=== PATIENT | male | born 1955 | race African-American/Black ===

== ENCOUNTER 2016-04-15 17:32 | Emergency (ER) | payer BC ==
[2016-04-15 17:43] VITALS: BMI 23.3
[2016-04-15] MEDS ORDERED: ACETAMINOPHEN 1000 MG/100 ML VIAL (NON FORMULARY) IVPB ONE (18:46)
[2016-04-15] MEDS ORDERED: SODIUM CHLORIDE 1,000 ML IV STA (18:46)
--- NOTE | 2016-04-15 18:46 | PDOC ---
History of Present Illness - General History Source: Patient Exam Limitations: No Limitations - History of Present Illness Initial Comments: 04/15/16 18:47 The patient is a 60 year old male, with a significant past medical history of diabetes, HTN, and multiple myeloma, who presents to the emergency department with cough, congestion, chills, lightheadedness and AMS. The patients states last night when the patient got home he had the chills and was congested. She notes today his symptoms persisted and he was feeling weak along with being somnolent. denies any [id number] medication. denies getting his flu shot this season. Allergies: NKDA Social History: Nonsmoker. <Zan Arroyo - Last Filed: 04/15/16 18:56> <Anai Comer - Last Filed: 04/15/16 18:57> <Rere Pérez - Last Filed: 04/16/16 04:03> - General Chief Complaint: Altered Mental Status Stated Complaint: LIGHTHEADED/DISORIENTED/COUGH Time Seen by Provider: 04/15/16 18:39 Past History <Zan Arroyo - Last Filed: 04/15/16 18:56> - Past Medical History Cancer: (MULTIPLE MYELOMA) Diabetes: Yes HTN: Yes - Surgical History Neurologic Surgery: Yes (BRAIN) - Psycho/Social/Smoking Cessation Hx Anxiety: No Suicidal Ideation: No Smoking History: Never smoked Hx Alcohol Use: Yes (SOCIAL) Drug/Substance Use Hx: No Substance Use Type: None <Anai Comer - Last Filed: 04/15/16 18:57> <Rere Pérze - Last Filed: 04/16/16 04:03> - Past Medical History Allergies/Adverse Reactions: Allergies Allergy/AdvReac Type Severity Reaction Status Date / Time No Known Allergies Allergy Verified 04/15/16 17:43 Home Medications: Ambulatory Orders Amlodipine Besylate [Norvasc -] 5 mg PO DAILY 04/15/16 Lenalidomide [Revlimid] 25 mg PO DAILY 04/15/16 Metformin HCl [Glucophage -] 500 mg PO DAILY 04/15/16 Rivaroxaban [Xarelto -] 0 mg PO DAILY 04/15/16 Simvastatin [Zocor] 10 mg PO HS 04/15/16 Valacyclovir HCl [Valtrex -] 0 mg PO ASDIR 04/15/16 Review of Systems - Review of Systems Able to Perform ROS?: Yes Comments:: 04/15/16 18:48 GENERAL/CONSTITUTIONAL: Yes chills and weakness. No fever. HEAD, EYES, EARS, NOSE AND THROAT: No change in vision. No ear pain or discharge. No sore throat. CARDIOVASCULAR: No chest pain or shortness of breath. RESPIRATORY: Yes cough No wheezing, or hemoptysis. GASTROINTESTINAL: No nausea, vomiting, diarrhea or constipation. GENITOURINARY: No dysuria, frequency, or change in urination. MUSCULOSKELETAL: No joint or muscle swelling or pain. No neck or back pain. SKIN: No rash NEUROLOGIC: Yes AMS and lightheadedness. No headache, vertigo, loss of consciousness, or change in strength/sensation. ENDOCRINE: No increased thirst. No abnormal weight change. HEMATOLOGIC/LYMPHATIC: No anemia, easy bleeding, or history of blood clots. ALLERGIC/IMMUNOLOGIC: No hives or skin allergy. <Zan Arroyo - Last Filed: 04/15/16 18:56> *Physical Exam - Vital Signs Last Vital Signs Temp Pulse Resp BP Pulse Ox 99.8 F H 75 20 139/58 96 04/15/16 17:39 04/15/16 17:39 04/15/16 17:39 04/15/16 17:39 04/15/16 17:39 - Physical Exam Comments: 04/15/16 18:48 GENERAL: Awake, alert, and fully oriented. Appears ill but is non-toxic. HEAD: No signs of trauma EYES: PERRLA, EOMI, sclera anicteric, conjunctiva clear ENT: Auricles normal inspection, hearing grossly normal, nares patent, oropharynx clear without exudates. Dry mucosa NECK: Normal ROM, supple, no lymphadenopathy, JVD, or masses LUNGS: Breath sounds equal, clear to auscultation bilaterally. No wheezes, and no crackles HEART: Regular rate and rhythm, normal S1 and S2, no murmurs, rubs or gallops ABDOMEN: Soft, nontender, normoactive bowel sounds. No guarding, no rebound. No masses EXTREMITIES: Normal range of motion, no edema. No clubbing or cyanosis. No cords, erythema, or tenderness NEUROLOGICAL: Cranial nerves II through XII grossly intact. Normal speech. SKIN: Warm, Dry, normal turgor, no rashes or lesions noted. <Zan Arroyo - Last Filed: 04/15/16 18:56> - Vital Signs Last Vital Signs Temp Pulse Resp BP Pulse Ox 99.8 F H 75 20 139/58 96 04/15/16 17:39 04/15/16 17:39 04/15/16 17:39 04/15/16 17:39 04/15/16 17:39 <Anai Comer - Last Filed: 04/15/16 18:57> - Vital Signs Last Vital Signs Temp Pulse Resp BP Pulse Ox 101.2 F H 89 21 142/86 97 04/15/16 20:06 04/15/16 20:06 04/15/16 20:06 04/15/16 20:06 04/15/16 20:06 <Rere Pérez - Last Filed: 04/16/16 04:03> Heart Score/ECG Review - ECG Impressions Comment:: EKG read 18:50- NSR 93 bpm, no acute ST/T changes <Anai Comer - Last Filed: 04/15/16 18:57> ED Treatment Course - LABORATORY CBC & Chemistry Diagram: 04/15/16 18:50 04/15/16 18:50 - ADDITIONAL ORDERS Additional order review: Laboratory Results 04/15/16 04/15/16 04/15/16 19:50 18:50 18:50 Sodium 137 Potassium 4.0 Chloride 97 L Carbon Dioxide 29 Anion Gap 11 BUN 10 Creatinine 1.3 Creat Clearance w eGFR 55.94 Random Glucose 154 H Lactic Acid 1.906 Calcium 9.0 Total Bilirubin 0.5 AST 18 ALT 25 Alkaline Phosphatase 123 H Total Protein 6.4 Albumin 4.0 Urine Color Straw Urine Appearance Clear Urine pH 5.0 Ur Specific [place] 1.004 Urine Protein Negative Urine Glucose (UA) Negative Urine Ketones Negative Urine Blood 2+ H Urine Nitrite Negative Urine Bilirubin Negative Urine Urobilinogen Negative Ur Leukocyte Esterase Negative Urine RBC 1 Urine WBC <1 Ur Epithelial Cells Rare Hyaline Casts 1 Urine Mucus Rare 04/15/16 18:50 Influenza Types A,B Antigen (IDA) - Final Nasopharyngeal Swab - Final 04/15/16 18:50 RBC 5.09 MCV 84.7 MCHC 32.3 RDW 15.0 MPV 8.0 Neutrophils % 70.8 Lymphocytes % 12.6 Monocytes % 15.2 H Eosinophils % 0.7 Basophils % 0.7 - Medications Given in the ED: ED Medications Discontinued Medications Generic Name Dose Route Start Last Admin Trade Name Destiny PRN Reason Stop Dose Admin Acetaminophen 1,000 mg 04/15/16 18:46 04/15/16 19:19 Ofirmev Injection - IVPB 04/15/16 18:47 1,000 mg ONCE ONE Administration Sodium Chloride 1,000 mls @ 1,000 mls/hr 04/15/16 18:46 04/15/16 19:19 Normal Saline - IV 04/15/16 19:45 1,000 mls/hr ASDIR STA Administration Oseltamivir Phosphate 75 mg 04/15/16 19:37 04/15/16 19:46 Tamiflu - PO 04/15/16 19:38 75 mg ONCE ONE Administration <Rere Pérez - Last Filed: 04/16/16 04:03> Medical Decision Making - Medical Decision Making 04/16/16 04:02 Pt has influenza. He is feeling better after hydration. He is alert and wants to go home with his sig other. He states that he has 2 sons at home that he has to get to school tomorrow. Pt will be discharged home with tamiflu. <Rere Pérez - Last Filed: 04/16/16 04:03> *DC/Admit/Observation/Transfer - Attestations Scribe Attestion: 04/15/16 18:48 Documentation prepared by Zan Arroyo, acting as medical care administrator for Anai Comer MD. <Zan Arroyo - Last Filed: 04/15/16 18:56> <Anai Comer - Last Filed: 04/15/16 18:57> - Discharge Dispostion Admit: No <Rere Pérez - Last Filed: 04/16/16 04:03> Diagnosis at time of Disposition: Influenza - Discharge Dispostion Disposition: HOME Condition at time of disposition: Stable - Referrals Referrals: STAFF,NOT ON [Primary Care Provider] - - Patient Instructions Printed Discharge Instructions: Influenza - Post Discharge Activity Work/School Note: Back to Work
[2016-04-15] MEDS ORDERED: ACETAMINOPHEN INJECTION 100 ML IVPB ONE (19:10)
[2016-04-15 19:11] LABS: BASOPHIL 0.7 % (0-2.0); EOSINOPHIL 0.7 % (0-4.5); MCH 27.3 pg (25.7-33.7); MCHC 32.3 g/dl (32.0-35.9); MEAN CELL VOLUME 84.7 fl (80-96); NEUTROPHILS 70.8 % (42.8-82.8); PLATELET COUNT 197 K/MM3 (134-434); WHITE BLOOD COUNT 3.6 K/mm3 (4.0-10.0)
[2016-04-15] MEDS ORDERED: OSELTAMIVIR PHOSPHATE 75 MG CAPSULE PO ONE (19:37)
[2016-04-15] MEDS ORDERED: OSELTAMIVIR PHOSPHATE 75 MG CAPSULE ONE (19:42)
[2016-04-15 19:55] LABS: URINE APPEARANCE CLEAR; URINE BILIRUBIN NEGATIVE (NEGATIVE); URINE COLOR STRAW; URINE GLUCOSE (UA) NEGATIVE (NEGATIVE); URINE KETONE NEGATIVE (NEGATIVE); URINE LEUK ESTERASE NEGATIVE (NEGATIVE); URINE NITRITE NEGATIVE (NEGATIVE); URINE PROTEIN NEGATIVE (NEGATIVE); URINE UROBILINOGEN NEGATIVE E.U./dl (0.2-1.0)
[2016-04-15 19:57] LABS: URINE BLOOD 2+ (NEGATIVE)
[2016-04-15 19:58] LABS: URINE HYALINE CAST 1 /lpf; URINE MUCUS RARE; URINE RBC 1 /hpf (0-3); URINE WBC <1 /hpf (3-5)
[2016-04-15 20:05] LABS: BILIRUBIN,TOTAL 0.5 mg/dL (0.2-1.0); CREATININE 1.3 mg/dL (0.7-1.3); TOT PROT 6.4 g/dl (6.4-8.2)
[2016-04-15 20:07] VITALS: BP 142/86; PULSE 89; TEMP 101.2
[2016-04-15] MEDS ORDERED: ACETAMINOPHEN 325 MG TABLET (FP) PO ONE (20:51)
[2016-04-15] MEDS ORDERED: ACETAMINOPHEN 325 MG TABLET (FP) ONE (20:59)
--- NOTE | 2016-04-16 10:26 | EKG ---
Test Reason : Blood Pressure : / mmHG Vent. Rate : 093 BPM Atrial Rate : 093 BPM P-R Int : 156 ms QRS Dur : 094 ms QT Int : 340 ms P-R-T Axes : 064 008 040 degrees QTc Int : 422 ms NORMAL SINUS RHYTHM WITH SINUS ARRHYTHMIA NORMAL ECG NO PREVIOUS ECGS AVAILABLE Confirmed by ANNEL JIMENEZ MD ([id number]) on 04/16/2016 10:26:03 AM Referred By: Confirmed By:ANNEL JIMENEZ MD
== END 2016-04-15 21:08 | disposition home or self-care (01) ==
LOC: JER 17:32
PROC: 3E033NZ Introduction of Analgesics, Hypnotics, Sedatives into Peripheral Vein, Percutaneous Approach (ICD-10-PCS; principal; 2016-04-15)
DX: J09.X2 Influenza due to identified novel influenza A virus with other respiratory manifestations (principal); I10 Essential (primary) hypertension; E11.9 Type 2 diabetes mellitus without complications; Z79.84 Long term (current) use of oral hypoglycemic drugs; Z85.79 Personal history of other malignant neoplasms of lymphoid, hematopoietic and related tissues
CPT/HCPCS: 36415; 71010-TC; 80053; 81003; 81015; 83605; 85025; 87040; 87086; 87804; 93005; 93010; 99283-25

== ENCOUNTER 2016-06-12 12:48 | Emergency (ER) | payer OTHER, BC ==
[2016-06-12 12:58] VITALS: TEMP 98.1; BMI 21.1
--- NOTE | 2016-06-12 13:54 | PDOC ---
History of Present Illness <Jose G Herzog - Last Filed: 06/12/16 16:32> - General History Source: Patient, Old Records Exam Limitations: No Limitations - History of Present Illness Initial Comments: 06/12/16 19:03 The patient is a 60 year old male, with a significant past medical history of HTN, diabetes, DVT (on eliquis) and multiple lyomoma (had radiation therapy and currentl on chemotherapy), who presents to the emergency department with generalized weakness and left sided headache. He also notes that he has neck pain and mild blurry vision associated with his chief complaint. He states that he took Oxycodene this morning, with minimal relief of his symptoms. He reports that he had a similar pain on the right side on 07/2015, that was more severe that his current pain. He also reports that he noticed that this pain has been brought on due to standing for long periods of time. His PMD gave him a muscle relaxer, which relieved the pain. 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 He is set to follow up with his opthamologist. Pt describes his blurry vision as when he first looks at something, most of it is clear except for the periphery, but when he looks carefully, it is clear. no associated double vision. The patient denies chest pain, shortness of breath,and dizziness. Denies fever, chills, nausea, vomit, diarrhea and constipation. Allergies: None Past surgical history: Brain surgery Social history: No alcohol, tobacco or drug use reported <Silvano Ventura - Last Filed: 06/12/16 19:04> - General Chief Complaint: Weakness Stated Complaint: FATIGUE, LETHARGIC, EYE PAIN Time Seen by Provider: 06/12/16 13:54 Past History - Past Medical History Cancer: Yes (MULTIPLE MYELOMA) Diabetes: Yes HTN: Yes - Surgical History Neurologic Surgery: Yes (BRAIN) - Psycho/Social/Smoking Cessation Hx Anxiety: No Suicidal Ideation: No Smoking History: Never smoked Have you smoked in the past 12 months: No Information on smoking cessation initiated: No Hx Alcohol Use: No Drug/Substance Use Hx: No Substance Use Type: None <Jose G Herzog - Last Filed: 06/12/16 16:32> <Silvano Ventura - Last Filed: 06/12/16 19:04> - Past Medical History Allergies/Adverse Reactions: Allergies Allergy/AdvReac Type Severity Reaction Status Date / Time No Known Allergies Allergy Verified 06/12/16 12:53 Home Medications: Ambulatory Orders Amlodipine Besylate [Norvasc -] 5 mg PO DAILY 04/15/16 Lenalidomide [Revlimid] 25 mg PO DAILY 04/15/16 Metformin HCl [Glucophage -] 500 mg PO DAILY 04/15/16 Rivaroxaban [Xarelto -] 0 mg PO DAILY 04/15/16 Simvastatin [Zocor] 10 mg PO HS 04/15/16 Valacyclovir HCl [Valtrex -] 0 mg PO ASDIR 04/15/16 Review of Systems - Review of Systems Able to Perform ROS?: Yes Comments:: 06/12/16 19:04 CONSTITUTIONAL: Reported: Generalized weakness. No reported: Fever, Chills, Diaphoresis, Malaise, Loss of Appetite HEENT: Reported: Blurry vision, left eye pain No reported: Rhinorrhea, Nasal Congestion, Throat Pain, Throat Swelling, Difficulty Swallowing, Mouth Swelling, Ear Pain CARDIOVASCULAR: No reported: Chest Pain, Syncope, Palpitations, Irregular Heart Rate, Lightheadedness, Peripheral Edema RESPIRATORY: No reported: Cough, Shortness of Breath, SOB with Exertion, Orthopnea, Wheezing , Stridor, Hemoptysis GASTROINTESTINAL: No reported: Abdominal pain, Abdominal Distension, Nausea, Vomiting, Diarrhea, Constipation, Melena, Hematochezia GENITOURINARY: No reported: Dysuria, Frequency, Urgency, Hesitancy, Flank Pain, Genital Pain MUSCULOSKELETAL: Reported: Neck pain. No reported: Myalgia, Arthralgia, Joint Swelling, Back pain. SKIN: No reported: Rash, Itching, Pallor HEMEATOLOGIC/IMMUNOLOGIC: No reported: Easy Bleeding, Easy Bruising, Lymphadenopathy, Frequent infections ENDOCRINE: No reported: Unexplained Weight Gain, Unexplained Weight Loss, Heat Intolerance , Cold Intolerance NEUROLOGIC: Reported: Headache No reported: Focal Weakness, Paresthesias, Vertigo, Lightheadedness, Unsteady Gait, Seizure, Mental Status Changes, Incontinence PSYCHIATRIC: No reported: Anxiety, Depression <Silvano Ventura - Last Filed: 06/12/16 19:04> *Physical Exam - Vital Signs Last Vital Signs Temp Pulse Resp BP Pulse Ox 98.1 F 71 18 130/86 100 06/12/16 12:55 06/12/16 12:55 06/12/16 12:55 06/12/16 12:55 06/12/16 12:55 <Jose G Herzog - Last Filed: 06/12/16 16:32> - Vital Signs Last Vital Signs Temp Pulse Resp BP Pulse Ox 98.1 F 71 18 130/86 100 06/12/16 12:55 06/12/16 12:55 06/12/16 12:55 06/12/16 12:55 06/12/16 12:55 - Physical Exam Comments: 06/12/16 19:04 GENERAL: The patient is awake, alert, and fully oriented, Nontoxic - in no acute distress. HEAD: Normocephalic, atraumatic. No palpable tenderness or mass in the temples. EYES: extraocular movements intact, sclera anicteric, conjunctiva clear. visual gaspar intact, pupils 3mm and symmetrically reactive ENT: Normal voice, Moist mucous membranes. NECK: Normal range of motion, supple LUNGS: Breath sounds equal, clear to auscultation bilaterally. No wheezes, no rhonchi, no rales. HEART: Regular rate and rhythm, without murmur, rub or gallop. ABDOMEN: Soft, nontender, normoactive bowel sounds. No guarding, no rebound.No CVA tenderness EXTREMITIES: Normal range of motion, no edema. No clubbing or cyanosis. No cords, erythema, or tenderness. NEUROLOGICAL: No facial assymetry, Normal speech, PSYCH: Normal mood, normal affect. SKIN: Warm, Dry, normal turgor <Silvano Ventura - Last Filed: 06/12/16 19:04> Heart Score/ECG Review - ECG Impressions Comment:: 06/12/16 14:47 Twelve-lead EKG was performed and reviewed by me. There is normal sinus rhythm with a normal rate. Rate of 71 The axis is normal. The intervals are normal. There is normal R wave progression There are no ST or T wave abnormalities. Impression: Normal twelve-lead EKG <Jose G Herzog - Last Filed: 06/12/16 16:32> ED Treatment Course - LABORATORY CBC & Chemistry Diagram: 06/12/16 14:00 06/12/16 14:00 <Jose G Herzog - Last Filed: 06/12/16 16:32> - LABORATORY CBC & Chemistry Diagram: 06/12/16 14:00 06/12/16 14:00 - ADDITIONAL ORDERS Additional order review: Laboratory Results 06/12/16 06/12/16 14:00 14:00 Sodium 141 Potassium 3.8 Chloride 103 Carbon Dioxide 27 Anion Gap 11 BUN 12 Creatinine 1.0 D Creat Clearance w eGFR > 60 Random Glucose 134 H Calcium 9.1 Magnesium 2.0 Total Bilirubin 0.5 AST 15 ALT 19 D Alkaline Phosphatase 120 H Creatine Kinase 151 CK-MB (CK-2) Rel Index Cancelled Troponin I < 0.02 C-Reactive Protein < 0.3 Total Protein 6.4 Albumin 3.9 06/12/16 14:00 RBC 4.69 MCV 84.3 MCHC 31.7 L RDW 15.8 MPV 7.5 Neutrophils % 53.2 D Lymphocytes % 22.2 D Monocytes % 18.9 H Eosinophils % 3.6 D Basophils % 2.1 H - RADIOLOGY Radiograph Interpretation: 06/12/16 15:[address] Reviewed by: Dr. Glenroy Puente Impression: No evidence of acute intracranial hemorrhage, edema, midline shift, mass effect. Supratentorial decreased attenuation of the white matter which may be attributed to the chronic microangiopathic ischemic changes, gliosis, demylimation, postradiation changes. Postop changes involving the occipital calvarium. Chest X-Ray Reviewed by: Dr. Glenroy Puente Impression: No evidence of active pulmonary disease. No evidence of pneumothorax. - Medications Given in the ED: ED Medications Discontinued Medications Generic Name Dose Route Start Last Admin Trade Name Freq PRN Reason Stop Dose Admin Metoclopramide HCl 10 mg 06/12/16 13:57 06/12/16 14:30 Reglan Injection - IVPUSH 06/12/16 13:58 10 mg ONCE ONE Administration <Silvano Ventura - Last Filed: 06/12/16 19:04> Medical Decision Making - Medical Decision Making 06/12/16 14:17 60y F hx of multiple myeloma, dvt on eliquis, dm, htn, presents with headache - pt endorses intermittent headaches for the past few weeks, that seems to worsen when he is standing, it was worse than usual today so he came to [facility] for evaluation. On exam the patient has unremarkale exam. ?tension headache? consider possible tempora arteritis will obtain blood work ct head will give reglan will reassess A portion of this note was documented by scribe services under my direction. I have reviewed the details of the note, within reason, and agree with the documentation with the following case summary and management plan written by me 06/12/16 15:46 06/12/16 15:46 pts albs reviewed unremarkable crp negative pts ct head noted for chonic, post op changes suspect pts symptoms secondary to tension headache, possibly sleep related as pt states he has not been sleeping enough recently and notes in the past the headache is improved with sleep. pt currently feels improved with complete resolution of the headache, h is sitting comfortably in the stretcher eating a pastrami wrap will d/c the pt to fu with her pmd return precautions were discussed I discussed the physical exam findings, ancillary test results and final diagnoses with the patient. I answered all of the patient's questions. The patient was satisfied with the care received and felt comfortable with the discharge plan and treatment plan. The patient will call their primary care physician within 24 hours to arrange follow-up and will return to the Emergency Department with any new, persistent or worsening symptoms. <Jose G Herzog - Last Filed: 06/12/16 16:32> *DC/Admit/Observation/Transfer - Discharge Dispostion Admit: No <Jose G Herzog - Last Filed: 06/12/16 16:32> - Attestations Scribe Attestion: 06/12/16 19:04 Documentation prepared by Silvano Ventura, acting as back office medical assistant for Jose G Herzog MD <Silvano Ventura - Last Filed: 06/12/16 19:04> Diagnosis at time of Disposition: Headache Qualifiers: Headache type: tension-type Headache chronicity pattern: acute headache Intractability: not intractable Qualified Code(s): G44.209 - Tension-type headache, unspecified, not intractable - Discharge Dispostion Disposition: HOME Condition at time of disposition: Improved - Referrals Referrals: [facility] [Provider Group] - Patient Instructions Printed Discharge Instructions: DI for Headache Additional Instructions: Return to the emergency department immediately with ANY new, persistent or worsening symptoms including worsening headache, vision changes, vomiting, or any other concerns. You MUST call and follow up with your doctor tomorrow for further evaluation of your symptoms. Results were discussed with you. Please make sure your doctor reviews the results of your emergency evaluation. Print Language: FAROESE
[2016-06-12] MEDS ORDERED: METOCLOPRAMIDE HCL INJECTION 10 MG/2 ML VIAL IVPUSH ONE (13:57)
[2016-06-12] MEDS ORDERED: METOCLOPRAMIDE HCL INJECTION 10 MG/2 ML VIAL ONE (14:16)
[2016-06-12 14:33] LABS: BASOPHIL 2.1 % (0-2.0); EOSINOPHIL 3.6 % (0-4.5); MCH 26.8 pg (25.7-33.7); MCHC 31.7 g/dl (32.0-35.9); MEAN CELL VOLUME 84.3 fl (80-96); MEAN PLT VOLUME 7.5 fl (7.5-11.1); NEUTROPHILS 53.2 % (42.8-82.8); PLATELET COUNT 239 K/MM3 (134-434); RDW 15.8 % (11.9-15.9); WHITE BLOOD COUNT 3.3 K/mm3 (4.0-10.0)
[2016-06-12 14:58] LABS: ALBUMIN 3.9 g/dl (3.4-5.0); ANION GAP 11 (8-16); BILIRUBIN,TOTAL 0.5 mg/dL (0.2-1.0); C-REACTIVE PROTEIN < 0.3 MG/DL (0.00-0.3); CALCIUM 9.1 mg/dL (8.5-10.1); CO2 27 mmol/L (21-32); GLUCOSE,RANDOM 134 mg/dL (74-106); SGOT/AST 15 U/L (15-37); SGPT/ALT 19 U/L (12-78); TOT PROT 6.4 g/dl (6.4-8.2)
[2016-06-12 14:59] LABS: ALK PHOS 120 U/L (45-117); TROPONIN I < 0.02 ng/ml (0.00-0.05)
[2016-06-12 15:18] LABS: URINE APPEARANCE CLEAR; URINE BILIRUBIN NEGATIVE (NEGATIVE); URINE BLOOD NEGATIVE (NEGATIVE); URINE COLOR COLORLESS; URINE GLUCOSE (UA) NEGATIVE (NEGATIVE); URINE KETONE NEGATIVE (NEGATIVE); URINE LEUK ESTERASE NEGATIVE (NEGATIVE); URINE NITRITE NEGATIVE (NEGATIVE); URINE PROTEIN NEGATIVE (NEGATIVE); URINE UROBILINOGEN NEGATIVE E.U./dl (0.2-1.0)
--- NOTE | 2016-06-12 15:55 | EKG ---
Test Reason : Blood Pressure : / mmHG Vent. Rate : 071 BPM Atrial Rate : 071 BPM P-R Int : 164 ms QRS Dur : 104 ms QT Int : 406 ms P-R-T Axes : 051 -06 024 degrees QTc Int : 441 ms NORMAL SINUS RHYTHM NORMAL ECG WHEN COMPARED WITH ECG OF 15-APR-2016 18:46, NO SIGNIFICANT CHANGE WAS FOUND Confirmed by JOSEPH MESSER MD ([id number]) on 06/12/2016 3:55:22 PM Referred By: Confirmed By:JOSEPH MESSER MD
[2016-06-12 16:16] LABS: ERYTHROCYTE SEDIMENTATION RATE 3 mm/hr (0-20)
[2016-06-12 16:40] VITALS: BP 127/83; PULSE 78
== END 2016-06-12 16:40 | disposition home or self-care (01) ==
LOC: JER 12:48
PROC: 3E033GC Introduction of Other Therapeutic Substance into Peripheral Vein, Percutaneous Approach (ICD-10-PCS; principal; 2016-06-12)
DX: G44.209 Tension-type headache, unspecified, not intractable (principal); C90.00 Multiple myeloma not having achieved remission; Z86.718 Personal history of other venous thrombosis and embolism; Z79.01 Long term (current) use of anticoagulants; I10 Essential (primary) hypertension; E11.9 Type 2 diabetes mellitus without complications; Z79.84 Long term (current) use of oral hypoglycemic drugs
CPT/HCPCS: 36415; 70450-TC; 71010-TC; 80053; 81003; 82550; 82553; 83735; 84484; 85025; 85651; 86140; 93005; 93010; 96374; 99284-25

== ENCOUNTER 2020-09-28 17:58 | Observation (INO) | payer OTHER, BC ==
[2020-09-28] MEDS ORDERED: ACETAMINOPHEN 325 MG TABLET (FP) PO ONE (19:45)
[2020-09-28] MEDS ORDERED: ASPIRIN 81 MG CHEWABLE TABLETS PO ONE (20:02)
[2020-09-28] MEDS ORDERED: ACETAMINOPHEN 325 MG TABLET (FP) ONE (20:34)
[2020-09-28] MEDS ORDERED: ASPIRIN 81 MG CHEWABLE TABLETS ONE (20:34)
[2020-09-28] MEDS ORDERED: FAMOTIDINE 20 MG/50 ML IVPB 20 MG/50 ML MG IVPB ONE ×2 (21:03→21:33)
[2020-09-28 21:04] LABS: EOS % 2.4 % (0-4.5); HEMATOCRIT 33.9 % (35.4-49); HEMOGLOBIN 10.8 GM/dL (11.7-16.9); LYMPH % 19.6 % (8-40); MCHC 31.8 g/dl (32.0-35.9); MEAN PLT VOLUME 8.3 fl (7.5-11.1); MONO % 7.3 % (3.8-10.2); NEUT % 69.7 % (42.8-82.8); PLATELET COUNT 223 10^3/uL (134-434); RBC 3.86 M/mm3 (4.00-5.60); RDW 16.3 % (11.9-15.9); WHITE BLOOD COUNT 8.9 K/mm3 (4.0-10.0)
[2020-09-28 21:10] LABS: EPI CELLS 0 /uL (0-25.1); HYALINE CASTS 0 /uL (0-3.1); URINE APPEARANCE CLEAR; URINE BACTERIA 7 /uL (0-1359); URINE BILIRUBIN NEGATIVE (NEGATIVE); URINE COLOR YELLOW; URINE GLUCOSE (UA) NEGATIVE (NEGATIVE); URINE KETONE NEGATIVE (NEGATIVE); URINE LEUK ESTERASE NEGATIVE (NEGATIVE); URINE NITRITE NEGATIVE (NEGATIVE); URINE PROTEIN 1+ (NEGATIVE); URINE RBC 97 /uL (0-23.9); URINE WBC 2 /uL (0-25.8)
[2020-09-28 21:11] LABS: INR 1.45 (0.83-1.09); PROTHROMBIN TIME (PATIENT) 17.4 SEC (9.7-13.0)
[2020-09-28 21:14] LABS: ACTIVATED PTT 32.2 SECONDS (25.2-36.5)
[2020-09-28 21:24] LABS: CHLORIDE 104 mmol/L (98-107); SODIUM 140 mmol/L (136-145)
[2020-09-28 21:27] LABS: CALCIUM 8.7 mg/dL (8.5-10.1)
[2020-09-28 21:28] LABS: ALBUMIN 3.2 g/dl (3.4-5.0); ANION GAP 8 MMOL/L (8-16); BLOOD UREA NITROGEN 17.7 mg/dL (7-18); CO2 28 mmol/L (21-32); GLUCOSE,RANDOM 131 mg/dL (74-106)
[2020-09-28 21:31] LABS: CREATININE 1.3 mg/dL (0.55-1.3); SGOT/AST 20 U/L (15-37); SGPT/ALT 22 U/L (13-61)
[2020-09-28 21:32] LABS: BILIRUBIN,TOTAL 0.8 mg/dL (0.2-1); TOT PROT 5.5 g/dl (6.4-8.2)
[2020-09-28 21:33] LABS: ALK PHOS 113 U/L (45-117)
[2020-09-29] MEDS ORDERED: ACETAMINOPHEN 325 MG TABLET (FP) PO PRN (02:11)
[2020-09-29 05:44] LABS: BASO % 1.9 % (0-2.0); EOS % 3.2 % (0-4.5); HEMATOCRIT 34.8 % (35.4-49); HEMOGLOBIN 10.9 GM/dL (11.7-16.9); LYMPH % 15.8 % (8-40); MCH 27.8 pg (25.7-33.7); MCHC 31.3 g/dl (32.0-35.9); MEAN CELL VOLUME 88.8 fl (80-96); MEAN PLT VOLUME 8.1 fl (7.5-11.1); MONO % 8.1 % (3.8-10.2); PLATELET COUNT 218 10^3/uL (134-434); RBC 3.92 M/mm3 (4.00-5.60); RDW 16.1 % (11.9-15.9); WHITE BLOOD COUNT 7.8 K/mm3 (4.0-10.0)
[2020-09-29 06:03] LABS: BLOOD UREA NITROGEN 17.6 mg/dL (7-18); CALCIUM 8.5 mg/dL (8.5-10.1); MAGNESIUM 1.6 mg/dL (1.8-2.4)
[2020-09-29 06:07] LABS: CREATININE 1.1 mg/dL (0.55-1.3); PHOSPHOROUS 4.6 mg/dL (2.5-4.9)
[2020-09-29] MEDS ORDERED: SODIUM PHOSPHATE - 15 MM in SODIUM CHLORIDE 250 ML IVPB ONE (06:53)
[2020-09-29] MEDS ORDERED: MAGNESIUM SULF 50% (8.12 MEQ/2 ML-1 GM VIAL) IVPB ONE (06:54)
[2020-09-29] MEDS: INSULIN SLIDING SCALE (NOVOLOG) 1 VIAL SQ SCH ×3 (09:40→17:05)
[2020-09-29] MEDS ORDERED: MAGNESIUM SULF 50% (8.12 MEQ/2 ML-1 GM VIAL) ONE (09:49)
[2020-09-29] MEDS ORDERED: CARVEDILOL 3.125 MG TABLET (FP) ONE (10:22)
[2020-09-29] MEDS: SACUBITRIL/VALSARTAN 24 MG-26 MG TABLET PO SCH ×2 (10:32→22:05)
[2020-09-29] MEDS: CARVEDILOL 6.25 MG TABLET (FP) PO SCH ×2 (10:32→22:05)
[2020-09-29] MEDS: RIVAROXABAN 20 MG TABLET PO SCH ×2 (18:53→22:05)
[2020-09-29] MEDS ORDERED: ATORVASTATIN CA 20 MG TABLET (FP) PO SCH (22:00)
[2020-09-29] MEDS ORDERED: PT OWN MED DRAWER 7, Y5N ONE (22:00)
[2020-09-29] MEDS ORDERED: LATANOPROST 0.005% OPHTH SOLN 2.5ML BOTTLE OU SCH (22:43)
[2020-09-30 00:48] VITALS: BMI 22.1
[2020-09-30] MEDS: INSULIN SLIDING SCALE (NOVOLOG) 1 VIAL SQ SCH ×3 (06:24→18:01)
[2020-09-30] MEDS ORDERED: PT OWN MED DRAWER 7, Y5N ONE ×4 (07:58→16:34)
[2020-09-30] MEDS: TRAMETINIB PO SCH ×2 (08:04→11:53)
[2020-09-30 08:13] LABS: BASO % 0.8 % (0-2.0); EOS % 6.3 % (0-4.5); HEMATOCRIT 36.8 % (35.4-49); HEMOGLOBIN 11.5 GM/dL (11.7-16.9); MCH 27.6 pg (25.7-33.7); MCHC 31.4 g/dl (32.0-35.9); MEAN PLT VOLUME 8.2 fl (7.5-11.1); MONO % 11.1 % (3.8-10.2); NEUT % 58.8 % (42.8-82.8); PLATELET COUNT 257 10^3/uL (134-434); RBC 4.18 M/mm3 (4.00-5.60); RDW 15.9 % (11.9-15.9); WHITE BLOOD COUNT 6.6 K/mm3 (4.0-10.0)
[2020-09-30] MEDS ORDERED: TAMSULOSIN HCL 0.4 MG CAP PO SCH (08:30)
[2020-09-30 08:41] LABS: ALBUMIN 3.1 g/dl (3.4-5.0); BILIRUBIN,TOTAL 0.9 mg/dL (0.2-1); BLOOD UREA NITROGEN 15.5 mg/dL (7-18); CALCIUM 9.2 mg/dL (8.5-10.1); MAGNESIUM 1.8 mg/dL (1.8-2.4); PHOSPHOROUS 3.8 mg/dL (2.5-4.9); TOT PROT 5.7 g/dl (6.4-8.2)
[2020-09-30] MEDS ORDERED: DEXAMETHASONE 4 MG TABLET (FP) PO ONE (10:00)
[2020-09-30] MEDS: POMALIDOMIDE 3 MG PO SCH ×2 (10:00→12:01)
[2020-09-30] MEDS: CARVEDILOL 6.25 MG TABLET (FP) PO SCH (10:06)
[2020-09-30] MEDS: SACUBITRIL/VALSARTAN 24 MG-26 MG TABLET PO SCH (10:07)
[2020-09-30 10:49] VITALS: PULSE 75
[2020-09-30] MEDS ORDERED: POMALIDOMIDE 3 MG PO SCH (11:36)
[2020-09-30] MEDS ORDERED: TRAMETINIB PO SCH (11:37)
[2020-09-30] MEDS ORDERED: INSULIN (NOVOLOG) ASPART 100 UNITS/ML 10ML VIAL ONE (11:55)
[2020-09-30 15:54] VITALS: BP 126/80; TEMP 98.1
== END 2020-09-30 17:49 | disposition home or self-care (01) ==
LOC: JER 17:58 → UNDOADMOB 22:41 → JERBED 22:41 → INTOOBSV 09-29 02:11 → JERBED 09-29 02:11 → OBSVTOIN 09-29 02:11 → J4W 09-29 20:28 → JERBED 09-29 20:28 → J4W 09-29 20:28
PROVIDERS: ADMIT Hospitalist; ATTEND Internal Medicine
PROC: 3E033GC Introduction of Other Therapeutic Substance into Peripheral Vein, Percutaneous Approach (ICD-10-PCS; principal; 2020-09-29)
DX: C90.00 Multiple myeloma not having achieved remission (principal); I11.0 Hypertensive heart disease with heart failure; R10.31 Right lower quadrant pain; E11.9 Type 2 diabetes mellitus without complications; I50.20 Unspecified systolic (congestive) heart failure; D64.9 Anemia, unspecified; R07.9 Chest pain, unspecified; Z79.01 Long term (current) use of anticoagulants; E78.5 Hyperlipidemia, unspecified; Z79.899 Other long term (current) drug therapy; Z86.718 Personal history of other venous thrombosis and embolism
CPT/HCPCS: 36415; 71046-TC-FY; 72125-TC; 73200-TC-RT; 74176-TC; 80048; 80053; 81003; 82550; 82553; 82962; 83735; 84100; 84484; 85025; 85610; 85730; 87086; 93005; 93010; 96365; 96375; 99285-25; C9803; G0378; U0003; U0005

== ENCOUNTER 2020-11-27 20:20 | Inpatient (IN) | payer OTHER, BC ==
[2020-11-27] MEDS ORDERED: ASPIRIN 81 MG CHEWABLE TABLETS PO ONE (21:00)
[2020-11-27] MEDS ORDERED: ASPIRIN 81 MG CHEWABLE TABLETS ONE (21:23)
[2020-11-27 22:27] LABS: HEMATOCRIT 35.9 % (35.4-49); HEMOGLOBIN 11.7 GM/dL (11.7-16.9); MCH 28.2 pg (25.7-33.7); MCHC 32.5 g/dl (32.0-35.9); MEAN CELL VOLUME 86.9 fl (80-96); MEAN PLT VOLUME 7.6 fl (7.5-11.1); PLATELET COUNT 298 10^3/uL (134-434); RBC 4.13 M/mm3 (4.00-5.60); RDW 17.4 % (11.9-15.9); WHITE BLOOD COUNT 5.3 K/mm3 (4.0-10.0)
[2020-11-27 22:29] LABS: INR 1.02 (0.83-1.09); PROTHROMBIN TIME (PATIENT) 12.5 SEC (9.7-13.0)
[2020-11-27 22:32] LABS: ACTIVATED PTT 29.4 SECONDS (25.2-36.5)
[2020-11-27 22:48] LABS: CHLORIDE 108 mmol/L (98-107); SODIUM 143 mmol/L (136-145)
[2020-11-27 22:50] LABS: ALBUMIN 3.5 g/dl (3.4-5.0); ANION GAP 8 MMOL/L (8-16); BLOOD UREA NITROGEN 26.4 mg/dL (7-18); CALCIUM 9.3 mg/dL (8.5-10.1); CO2 27 mmol/L (21-32); GLUCOSE,RANDOM 113 mg/dL (74-106); MAGNESIUM 1.9 mg/dL (1.8-2.4)
[2020-11-27 22:53] LABS: SGPT/ALT 24 U/L (13-61)
[2020-11-27 22:54] LABS: CREATININE 1.1 mg/dL (0.55-1.3); SGOT/AST 27 U/L (15-37)
[2020-11-27 22:55] LABS: BILIRUBIN,TOTAL 0.6 mg/dL (0.2-1); TOT PROT 6.1 g/dl (6.4-8.2)
[2020-11-27 22:56] LABS: ALK PHOS 147 U/L (45-117)
[2020-11-27 23:17] LABS: ANISOCYTOSIS 1+; MACROCYTOSIS 1+; OVALOCYTE 1+; PLATELET ESTIMATE NORMAL
[2020-11-27] MEDS ORDERED: ACETAMINOPHEN 1000 MG/100 ML VIAL (NON FORMULARY) IVPB ONE (23:17)
[2020-11-27] MEDS ORDERED: ACETAMINOPHEN INJECTION 100 ML IVPB ONE (23:25)
[2020-11-27] MEDS ORDERED: SODIUM CHLORIDE 0.9% 500 ML INFUS.BAG IV ONE (23:43)
[2020-11-28 04:57] LABS: PH,URINE 6.5 (5.0-8.0); URINE APPEARANCE Clear; URINE BILIRUBIN Negative (NEGATIVE); URINE COLOR Yellow; URINE GLUCOSE (UA) 3+ (NEGATIVE); URINE KETONE Negative (NEGATIVE); URINE LEUK ESTERASE Negative (NEGATIVE); URINE NITRITE Negative (NEGATIVE); URINE PROTEIN Trace (NEGATIVE); URINE UROBILINOGEN 0.2 mg/dL (0.2-1.0)
[2020-11-28 07:03] LABS: BASO % 1.6 % (0-2.0); EOS % 0.6 % (0-4.5); HEMATOCRIT 35.9 % (35.4-49); HEMOGLOBIN 11.4 GM/dL (11.7-16.9); LYMPH % 25.3 % (8-40); MCH 28.1 pg (25.7-33.7); MCHC 31.8 g/dl (32.0-35.9); MEAN CELL VOLUME 88.4 fl (80-96); MEAN PLT VOLUME 8.2 fl (7.5-11.1); MONO % 23.4 % (3.8-10.2); NEUT % 49.1 % (42.8-82.8); PLATELET COUNT 299 10^3/uL (134-434); RBC 4.06 M/mm3 (4.00-5.60); WHITE BLOOD COUNT 3.9 K/mm3 (4.0-10.0)
[2020-11-28 07:28] LABS: ALBUMIN 3.1 g/dl (3.4-5.0); BLOOD UREA NITROGEN 20.5 mg/dL (7-18); CALCIUM 8.7 mg/dL (8.5-10.1)
[2020-11-28 07:29] LABS: MAGNESIUM 1.7 mg/dL (1.8-2.4)
[2020-11-28 07:32] LABS: CREATININE 0.9 mg/dL (0.55-1.3); PHOSPHOROUS 3.4 mg/dL (2.5-4.9)
[2020-11-28 07:33] LABS: BILIRUBIN,TOTAL 0.6 mg/dL (0.2-1)
[2020-11-28 07:34] LABS: TOT PROT 5.4 g/dl (6.4-8.2)
[2020-11-28] MEDS: INSULIN SLIDING SCALE (NOVOLOG) 1 VIAL SQ SCH ×2 (09:49→22:52)
[2020-11-28] MEDS: TAMSULOSIN HCL 0.4 MG CAP PO SCH (09:49)
[2020-11-28] MEDS: SACUBITRIL/VALSARTAN 24 MG-26 MG TABLET PO SCH ×2 (10:28→22:52)
[2020-11-28] MEDS: CARVEDILOL 6.25 MG TABLET (FP) PO SCH ×2 (10:28→22:52)
[2020-11-28 10:44] LABS: ANISOCYTOSIS 1+; MACROCYTOSIS 0; OVALOCYTE 1+; PLATELET ESTIMATE NORMAL; TARGET CELLS 1+; TEAR DROP CELLS 1+
[2020-11-28] MEDS ORDERED: RIVAROXABAN 20 MG TABLET PO SCH (18:00)
[2020-11-28] MEDS ORDERED: ATORVASTATIN CA 20 MG TABLET (FP) PO SCH (22:00)
[2020-11-29 03:45] VITALS: BMI 19.8
[2020-11-29] MEDS: INSULIN SLIDING SCALE (NOVOLOG) 1 VIAL SQ SCH ×5 (07:54→21:33)
[2020-11-29] MEDS: CARVEDILOL 6.25 MG TABLET (FP) PO SCH ×2 (10:09→21:33)
[2020-11-29] MEDS: SACUBITRIL/VALSARTAN 24 MG-26 MG TABLET PO SCH ×2 (10:09→21:33)
[2020-11-29] MEDS: TAMSULOSIN HCL 0.4 MG CAP PO SCH (10:09)
[2020-11-29] MEDS ORDERED: LIDOCAINE HCL/PF 2% SDV 5ML VIAL ONE (10:37)
[2020-11-29] MEDS ORDERED: PROPOFOL 20 ML ONE (10:37)
[2020-11-29] MEDS ORDERED: MIDAZOLAM HCL 2 MG/2 ML SINGLE DOSE VIAL ONE (10:37)
[2020-11-29] MEDS ORDERED: ROCURONIUM BROMIDE 50 MG/5 ML SYRINGE ONE (10:37)
[2020-11-29] MEDS ORDERED: DEXAMETHASONE SOD PHOSPHATE 4 MG/1 ML VIAL ONE (10:37)
[2020-11-29] MEDS ORDERED: LIDOCAINE HCL 1%, 10 MG/ML (20ML VIAL) ONE (10:46)
[2020-11-29] MEDS ORDERED: BUPIVACAINE HCL/PF 0.5% (5MG/ML) 10 ML VIAL ONE (10:46)
[2020-11-29] MEDS ORDERED: ceFAZolin SODIUM 1 GM VIAL ONE (11:38)
[2020-11-29] MEDS ORDERED: ceFAZolin SODIUM 1 GM VIAL IVPB ONE (11:40)
[2020-11-29] MEDS ORDERED: ONDANSETRON 4 MG/2 ML VIAL IVPUSH PRN ×2 (11:58→12:53)
[2020-11-29] MEDS ORDERED: LIDOCAINE HCL 1%, 10 MG/ML (20ML VIAL) NR ONE ×2 (12:26)
[2020-11-29] MEDS ORDERED: BUPIVACAINE HCL/PF 0.5% (5 MG/ML) 30 ML VIAL IJ ONE ×2 (12:26)
[2020-11-29] MEDS ORDERED: oxyCODONE HCL 5 MG TABLET PO PRN ×2 (12:50)
[2020-11-29] MEDS ORDERED: MAGNESIUM OXIDE 400 MG TABLET (FP) PO ONE (15:15)
[2020-11-29] MEDS: RIVAROXABAN 20 MG TABLET PO SCH (17:00)
[2020-11-29] MEDS ORDERED: ATORVASTATIN CA 20 MG TABLET (FP) PO SCH (22:00)
[2020-11-30] MEDS: INSULIN SLIDING SCALE (NOVOLOG) 1 VIAL SQ SCH ×3 (06:10→17:27)
[2020-11-30 08:21] LABS: HEMATOCRIT 35.7 % (35.4-49); HEMOGLOBIN 11.3 GM/dL (11.7-16.9); MCH 27.6 pg (25.7-33.7); MCHC 31.7 g/dl (32.0-35.9); MEAN CELL VOLUME 87.3 fl (80-96); MEAN PLT VOLUME 8.1 fl (7.5-11.1); PLATELET COUNT 297 10^3/uL (134-434); RBC 4.08 M/mm3 (4.00-5.60); WHITE BLOOD COUNT 5.1 K/mm3 (4.0-10.0)
[2020-11-30] MEDS ORDERED: TAMSULOSIN HCL 0.4 MG CAP PO SCH (08:30)
[2020-11-30 08:42] LABS: CHLORIDE 104 mmol/L (98-107); SODIUM 141 mmol/L (136-145)
[2020-11-30 08:43] LABS: CALCIUM 9.2 mg/dL (8.5-10.1)
[2020-11-30 08:44] LABS: ANION GAP 5 MMOL/L (8-16); CO2 31 mmol/L (21-32); GLUCOSE,RANDOM 162 mg/dL (74-106); MAGNESIUM 1.9 mg/dL (1.8-2.4)
[2020-11-30 08:47] LABS: PHOSPHOROUS 3.7 mg/dL (2.5-4.9)
[2020-11-30] MEDS ORDERED: MEKINIST 2 MG PO SCH (10:00)
[2020-11-30] MEDS ORDERED: POMALIDOMIDE 3 MG PO SCH (10:00)
[2020-11-30] MEDS: SACUBITRIL/VALSARTAN 24 MG-26 MG TABLET PO SCH (11:12)
[2020-11-30] MEDS: CARVEDILOL 6.25 MG TABLET (FP) PO SCH (11:13)
[2020-11-30] MEDS: RIVAROXABAN 20 MG TABLET PO SCH (17:27)
[2020-11-30 18:32] VITALS: BP 125/73; PULSE 80; TEMP 99.3
[2020-11-30] MEDS ORDERED: PT OWN MED DRAWER 7, Y5N ONE (19:37)
[2020-12-01] MEDS ORDERED: MEKINIST 2 MG PO SCH (10:00)
[2020-12-02] MEDS ORDERED: DEXAMETHASONE 2 MG TABLET PO SCH (10:00)
== END 2020-11-30 19:47 | disposition home or self-care (01) | DRG 351 ==
LOC: JER 20:20 → JERBED 11-28 03:01 → J4S 11-28 21:36
PROVIDERS: ADMIT Internal Medicine; ATTEND Internal Medicine
PROC: 0YU60JZ Supplement Left Inguinal Region with Synthetic Substitute, Open Approach (ICD-10-PCS; principal; 2020-11-29 10:30)
DX: K40.90 Unilateral inguinal hernia, without obstruction or gangrene, not specified as recurrent (principal); C90.00 Multiple myeloma not having achieved remission; I50.22 Chronic systolic (congestive) heart failure; E11.9 Type 2 diabetes mellitus without complications; Z86.718 Personal history of other venous thrombosis and embolism; Z79.01 Long term (current) use of anticoagulants; Z79.84 Long term (current) use of oral hypoglycemic drugs; I11.0 Hypertensive heart disease with heart failure; E78.5 Hyperlipidemia, unspecified; M94.0 Chondrocostal junction syndrome [Tietze]; D64.9 Anemia, unspecified
CPT/HCPCS: 36415; 71045-TC-FY; 74177-TC; 80048; 80053; 80061; 81003; 82550; 82962; 83605; 83735; 84100; 84443; 84484; 85025; 85027; 85610; 85730; 88304-TC; 93005; 93010; 93306-TC; 94760; 99285-25; C9803; J0131; U0003; U0005

== ENCOUNTER 2020-12-08 14:10 | Inpatient (IN) | payer OTHER, BC ==
[2020-12-08 17:48] LABS: BASO % 1.3 % (0-2.0); EOS % 3.4 % (0-4.5); HEMATOCRIT 35.7 % (35.4-49); HEMOGLOBIN 11.4 GM/dL (11.7-16.9); LYMPH % 15.2 % (8-40); MCH 27.9 pg (25.7-33.7); MCHC 31.9 g/dl (32.0-35.9); MEAN CELL VOLUME 87.4 fl (80-96); MEAN PLT VOLUME 8.1 fl (7.5-11.1); NEUT % 71.1 % (42.8-82.8); PLATELET COUNT 331 10^3/uL (134-434); RBC 4.09 M/mm3 (4.00-5.60); RDW 17.5 % (11.9-15.9); WHITE BLOOD COUNT 7.9 K/mm3 (4.0-10.0)
[2020-12-08 17:50] LABS: CHLORIDE 105 mmol/L (98-107); SODIUM 141 mmol/L (136-145)
[2020-12-08 17:54] LABS: CALCIUM 9.7 mg/dL (8.5-10.1)
[2020-12-08 17:55] LABS: ANION GAP 8 MMOL/L (8-16); BLOOD UREA NITROGEN 21.6 mg/dL (7-18); CO2 28 mmol/L (21-32); GLUCOSE,RANDOM 95 mg/dL (74-106)
[2020-12-08 17:58] LABS: SGOT/AST 45 U/L (15-37); SGPT/ALT 19 U/L (13-61)
[2020-12-08 18:01] LABS: ALK PHOS 143 U/L (45-117)
[2020-12-08] MEDS: SODIUM CHLORIDE 1,000 ML IV SCH (22:17)
[2020-12-08 22:41] LABS: EPI CELLS 2 /uL (0-25.1); HYALINE CASTS 3 /uL (0-3.1); URINE APPEARANCE CLEAR; URINE BACTERIA 5 /uL (0-1359); URINE BILIRUBIN NEGATIVE (NEGATIVE); URINE COLOR YELLOW; URINE GLUCOSE (UA) 3+ (NEGATIVE); URINE KETONE 1+ (NEGATIVE); URINE LEUK ESTERASE NEGATIVE (NEGATIVE); URINE NITRITE NEGATIVE (NEGATIVE); URINE PROTEIN 3+ (NEGATIVE); URINE RBC 6 /uL (0-23.9); URINE WBC 7 /uL (0-25.8)
[2020-12-08] MEDS ORDERED: DEXAMETHASONE 1 MG PO SCH (22:45)
[2020-12-09 02:14] VITALS: BMI 18.8
[2020-12-09] MEDS: INSULIN SLIDING SCALE (NOVOLOG) 1 VIAL SQ SCH ×4 (06:23→21:35)
[2020-12-09 07:12] LABS: BASO % 1.4 % (0-2.0); EOS % 4.2 % (0-4.5); HEMATOCRIT 35.2 % (35.4-49); HEMOGLOBIN 11.2 GM/dL (11.7-16.9); LYMPH % 13.9 % (8-40); MCHC 31.8 g/dl (32.0-35.9); MEAN PLT VOLUME 7.8 fl (7.5-11.1); MONO % 10.6 % (3.8-10.2); NEUT % 69.9 % (42.8-82.8); PLATELET COUNT 297 10^3/uL (134-434); RDW 16.7 % (11.9-15.9); WHITE BLOOD COUNT 6.1 K/mm3 (4.0-10.0)
[2020-12-09 07:34] LABS: ALBUMIN 2.9 g/dl (3.4-5.0); BLOOD UREA NITROGEN 23.4 mg/dL (7-18); CALCIUM 9.5 mg/dL (8.5-10.1)
[2020-12-09 07:35] LABS: MAGNESIUM 1.9 mg/dL (1.8-2.4)
[2020-12-09 07:36] LABS: CHOLESTEROL 163 mg/dL (50-200)
[2020-12-09 07:37] LABS: PHOSPHOROUS 3.7 mg/dL (2.5-4.9); TRIGLYCERIDES 127 mg/dL (0-150)
[2020-12-09 07:38] LABS: LDL CHOLESTEROL (ONLY SJRH) 73 mg/dL (5-100)
[2020-12-09 07:39] LABS: BILIRUBIN,TOTAL 0.8 mg/dL (0.2-1); TOT PROT 5.5 g/dl (6.4-8.2)
[2020-12-09 07:40] LABS: HDL CHOLESTEROL 62 mg/dL (40-60)
[2020-12-09] MEDS ORDERED: POMALIDOMIDE 3 MG PO SCH (10:00)
[2020-12-09] MEDS: SACUBITRIL/VALSARTAN 24 MG-26 MG TABLET PO SCH ×2 (10:21→21:35)
[2020-12-09] MEDS: CHOLECALCIFEROL (VIT D3) 1,000 UNIT (25 MCG) TABLET PO SCH (10:21)
[2020-12-09] MEDS: CARVEDILOL 6.25 MG TABLET (FP) PO SCH ×2 (10:21→21:35)
[2020-12-09] MEDS: SODIUM CHLORIDE 1,000 ML IV SCH (13:15)
[2020-12-09] MEDS: ATORVASTATIN CA 20 MG TABLET (FP) PO SCH (21:35)
[2020-12-09] MEDS: LATANOPROST 0.005% OPHTH SOLN 2.5ML BOTTLE OU SCH (21:36)
[2020-12-10] MEDS: SODIUM CHLORIDE 1,000 ML IV SCH ×3 (01:07→21:49)
[2020-12-10] MEDS: INSULIN SLIDING SCALE (NOVOLOG) 1 VIAL SQ SCH ×4 (06:19→21:50)
[2020-12-10] MEDS ORDERED: MEKINIST 2 MG PO SCH (10:00)
[2020-12-10] MEDS: SACUBITRIL/VALSARTAN 24 MG-26 MG TABLET PO SCH ×2 (10:23→21:50)
[2020-12-10] MEDS: CHOLECALCIFEROL (VIT D3) 1,000 UNIT (25 MCG) TABLET PO SCH (10:23)
[2020-12-10] MEDS: CARVEDILOL 6.25 MG TABLET (FP) PO SCH ×2 (10:23→21:49)
[2020-12-10 12:04] LABS: BASO % 1.8 % (0-2.0); HEMATOCRIT 33.1 % (35.4-49); HEMOGLOBIN 10.6 GM/dL (11.7-16.9); INR 0.99 (0.83-1.09); MCH 28.1 pg (25.7-33.7); MCHC 32.2 g/dl (32.0-35.9); MEAN CELL VOLUME 87.3 fl (80-96); MEAN PLT VOLUME 7.8 fl (7.5-11.1); MONO % 10.9 % (3.8-10.2); NEUT % 68.3 % (42.8-82.8); PLATELET COUNT 319 10^3/uL (134-434); PROTHROMBIN TIME (PATIENT) 12.2 SEC (9.7-13.0); RBC 3.79 M/mm3 (4.00-5.60); RDW 16.8 % (11.9-15.9); WHITE BLOOD COUNT 6.4 K/mm3 (4.0-10.0)
[2020-12-10 12:24] LABS: CALCIUM 8.4 mg/dL (8.5-10.1)
[2020-12-10 12:25] LABS: ALBUMIN 2.4 g/dl (3.4-5.0); BLOOD UREA NITROGEN 12.3 mg/dL (7-18); MAGNESIUM 1.7 mg/dL (1.8-2.4)
[2020-12-10 12:28] LABS: CREATININE 0.9 mg/dL (0.55-1.3)
[2020-12-10 12:29] LABS: BILIRUBIN,TOTAL 0.7 mg/dL (0.2-1); TOT PROT 4.9 g/dl (6.4-8.2)
[2020-12-10] MEDS: RIVAROXABAN 20 MG TABLET PO SCH (17:44)
[2020-12-10] MEDS: ATORVASTATIN CA 20 MG TABLET (FP) PO SCH (21:50)
[2020-12-10] MEDS: LATANOPROST 0.005% OPHTH SOLN 2.5ML BOTTLE OU SCH (21:50)
[2020-12-11] MEDS: INSULIN SLIDING SCALE (NOVOLOG) 1 VIAL SQ SCH ×4 (07:02→21:40)
[2020-12-11 07:21] LABS: ALBUMIN 2.4 g/dl (3.4-5.0); BLOOD UREA NITROGEN 11.1 mg/dL (7-18)
[2020-12-11 07:22] LABS: CALCIUM 8.4 mg/dL (8.5-10.1)
[2020-12-11 07:23] LABS: MAGNESIUM 1.7 mg/dL (1.8-2.4)
[2020-12-11 07:25] LABS: BASO % 2.8 % (0-2.0); CREATININE 0.8 mg/dL (0.55-1.3); EOS % 7.3 % (0-4.5); HEMATOCRIT 33.5 % (35.4-49); HEMOGLOBIN 10.5 GM/dL (11.7-16.9); LYMPH % 14.8 % (8-40); MCH 27.7 pg (25.7-33.7); MCHC 31.4 g/dl (32.0-35.9); MEAN CELL VOLUME 88.4 fl (80-96); MEAN PLT VOLUME 8.1 fl (7.5-11.1); MONO % 12.8 % (3.8-10.2); NEUT % 62.3 % (42.8-82.8); PLATELET COUNT 290 10^3/uL (134-434); RBC 3.79 M/mm3 (4.00-5.60); RDW 16.9 % (11.9-15.9); WHITE BLOOD COUNT 5.8 K/mm3 (4.0-10.0)
[2020-12-11 07:26] LABS: BILIRUBIN,TOTAL 0.6 mg/dL (0.2-1); TOT PROT 4.8 g/dl (6.4-8.2)
[2020-12-11] MEDS ORDERED: MAGNESIUM OXIDE 400 MG TABLET (FP) PO ONE (08:35)
[2020-12-11] MEDS ORDERED: POTASSIUM CHLORIDE TABS 20 MEQ TABLET.ER (FP) PO ONE (08:35)
[2020-12-11] MEDS: CHOLECALCIFEROL (VIT D3) 1,000 UNIT (25 MCG) TABLET PO SCH (10:59)
[2020-12-11] MEDS: CARVEDILOL 6.25 MG TABLET (FP) PO SCH ×2 (11:00→21:48)
[2020-12-11] MEDS: SACUBITRIL/VALSARTAN 24 MG-26 MG TABLET PO SCH ×2 (11:00→21:48)
[2020-12-11] MEDS: RIVAROXABAN 20 MG TABLET PO SCH (17:30)
[2020-12-11] MEDS: SODIUM CHLORIDE 1,000 ML IV SCH (21:48)
[2020-12-11] MEDS: ATORVASTATIN CA 20 MG TABLET (FP) PO SCH (21:48)
[2020-12-11] MEDS: LATANOPROST 0.005% OPHTH SOLN 2.5ML BOTTLE OU SCH (21:50)
[2020-12-12] MEDS: INSULIN SLIDING SCALE (NOVOLOG) 1 VIAL SQ SCH ×4 (06:17→21:51)
[2020-12-12 07:29] LABS: BASO % 1.7 % (0-2.0); EOS % 9.4 % (0-4.5); HEMATOCRIT 34.8 % (35.4-49); HEMOGLOBIN 11.2 GM/dL (11.7-16.9); LYMPH % 17.3 % (8-40); MCH 28.2 pg (25.7-33.7); MCHC 32.1 g/dl (32.0-35.9); MEAN CELL VOLUME 87.8 fl (80-96); MEAN PLT VOLUME 7.9 fl (7.5-11.1); MONO % 15.2 % (3.8-10.2); NEUT % 56.4 % (42.8-82.8); PLATELET COUNT 289 10^3/uL (134-434); RBC 3.96 M/mm3 (4.00-5.60); WHITE BLOOD COUNT 5.4 K/mm3 (4.0-10.0)
[2020-12-12 07:42] LABS: CALCIUM 8.9 mg/dL (8.5-10.1)
[2020-12-12 07:43] LABS: ALBUMIN 2.6 g/dl (3.4-5.0); BLOOD UREA NITROGEN 8.2 mg/dL (7-18); MAGNESIUM 1.8 mg/dL (1.8-2.4)
[2020-12-12 07:46] LABS: CREATININE 0.9 mg/dL (0.55-1.3)
[2020-12-12 07:47] LABS: BILIRUBIN,TOTAL 0.6 mg/dL (0.2-1); TOT PROT 5.1 g/dl (6.4-8.2)
[2020-12-12] MEDS: MULTIVITAMINS (DAILY MVI) TABLET (FP) PO SCH (09:18)
[2020-12-12] MEDS: SACUBITRIL/VALSARTAN 24 MG-26 MG TABLET PO SCH ×2 (09:18→21:51)
[2020-12-12] MEDS: CARVEDILOL 6.25 MG TABLET (FP) PO SCH ×2 (09:18→21:51)
[2020-12-12] MEDS: CHOLECALCIFEROL (VIT D3) 1,000 UNIT (25 MCG) TABLET PO SCH (09:18)
[2020-12-12] MEDS: SODIUM CHLORIDE 1,000 ML IV SCH (09:24)
[2020-12-12] MEDS: RIVAROXABAN 20 MG TABLET PO SCH (17:11)
[2020-12-12] MEDS: AMINO ACIDS/PROTEIN HYDROLYS 30 ML LIQUID.PKT PO SCH (17:11)
[2020-12-12] MEDS: ATORVASTATIN CA 20 MG TABLET (FP) PO SCH (21:51)
[2020-12-12] MEDS: LATANOPROST 0.005% OPHTH SOLN 2.5ML BOTTLE OU SCH (21:51)
[2020-12-13] MEDS: SODIUM CHLORIDE 1,000 ML IV SCH ×3 (01:20→23:19)
[2020-12-13] MEDS: INSULIN SLIDING SCALE (NOVOLOG) 1 VIAL SQ SCH ×4 (06:05→21:31)
[2020-12-13 08:12] LABS: HEMATOCRIT 33.9 % (35.4-49); HEMOGLOBIN 10.8 GM/dL (11.7-16.9); LYMPH % 20.6 % (8-40); MCH 27.9 pg (25.7-33.7); MCHC 31.9 g/dl (32.0-35.9); MEAN CELL VOLUME 87.6 fl (80-96); MEAN PLT VOLUME 7.9 fl (7.5-11.1); MONO % 17.4 % (3.8-10.2); PLATELET COUNT 288 10^3/uL (134-434); RBC 3.87 M/mm3 (4.00-5.60); RDW 17.1 % (11.9-15.9); WHITE BLOOD COUNT 4.9 K/mm3 (4.0-10.0)
[2020-12-13] MEDS: AMINO ACIDS/PROTEIN HYDROLYS 30 ML LIQUID.PKT PO SCH ×2 (08:13→16:56)
[2020-12-13 08:37] LABS: ALBUMIN 2.5 g/dl (3.4-5.0); CALCIUM 9.1 mg/dL (8.5-10.1)
[2020-12-13 08:38] LABS: MAGNESIUM 1.8 mg/dL (1.8-2.4)
[2020-12-13 08:40] LABS: CREATININE 0.8 mg/dL (0.55-1.3)
[2020-12-13 08:41] LABS: BILIRUBIN,TOTAL 0.8 mg/dL (0.2-1)
[2020-12-13 08:42] LABS: TOT PROT 4.9 g/dl (6.4-8.2)
[2020-12-13] MEDS: MULTIVITAMINS (DAILY MVI) TABLET (FP) PO SCH (10:38)
[2020-12-13] MEDS: CARVEDILOL 6.25 MG TABLET (FP) PO SCH ×2 (10:38→21:30)
[2020-12-13] MEDS: CHOLECALCIFEROL (VIT D3) 1,000 UNIT (25 MCG) TABLET PO SCH (10:38)
[2020-12-13] MEDS: ACETAMINOPHEN 325 MG TABLET (FP) PO PRN (12:04)
[2020-12-13] MEDS ORDERED: PT OWN MED DRAWER 7, Y5N ONE ×2 (12:08→21:29)
[2020-12-13] MEDS: SACUBITRIL/VALSARTAN 49 MG-51 MG TABLET PO SCH ×2 (12:08→21:31)
[2020-12-13 14:09] LABS: IGA IMMUNOGLOBULIN 11 mg/dL (61-437); IGG QN IMMUNOGLOBULIN 188 mg/dL (603-1613); IGM QN SERUM <5 mg/dL (20-172)
[2020-12-13 17:08] LABS: FREE KAPPA,SERUM 3395.3 mg/L (3.3-19.4)
[2020-12-13] MEDS: RIVAROXABAN 20 MG TABLET PO SCH (18:39)
[2020-12-13] MEDS: ATORVASTATIN CA 20 MG TABLET (FP) PO SCH (21:30)
[2020-12-13] MEDS: LATANOPROST 0.005% OPHTH SOLN 2.5ML BOTTLE OU SCH (21:36)
[2020-12-14] MEDS: INSULIN SLIDING SCALE (NOVOLOG) 1 VIAL SQ SCH ×4 (07:17→22:12)
[2020-12-14 07:37] LABS: BASO % 2.4 % (0-2.0); EOS % 8.9 % (0-4.5); HEMATOCRIT 31.8 % (35.4-49); HEMOGLOBIN 10.3 GM/dL (11.7-16.9); LYMPH % 19.6 % (8-40); MCHC 32.2 g/dl (32.0-35.9); MEAN CELL VOLUME 86.9 fl (80-96); MEAN PLT VOLUME 7.8 fl (7.5-11.1); MONO % 17.5 % (3.8-10.2); NEUT % 51.6 % (42.8-82.8); PLATELET COUNT 269 10^3/uL (134-434); RBC 3.66 M/mm3 (4.00-5.60); RDW 17.1 % (11.9-15.9)
[2020-12-14 07:58] LABS: ALBUMIN 2.6 g/dl (3.4-5.0); BLOOD UREA NITROGEN 13.7 mg/dL (7-18); CALCIUM 8.6 mg/dL (8.5-10.1); MAGNESIUM 1.5 mg/dL (1.8-2.4)
[2020-12-14 08:01] LABS: CREATININE 0.8 mg/dL (0.55-1.3)
[2020-12-14 08:03] LABS: BILIRUBIN,TOTAL 0.6 mg/dL (0.2-1); TOT PROT 4.8 g/dl (6.4-8.2)
[2020-12-14] MEDS: MULTIVITAMINS (DAILY MVI) TABLET (FP) PO SCH (09:28)
[2020-12-14] MEDS: AMINO ACIDS/PROTEIN HYDROLYS 30 ML LIQUID.PKT PO SCH ×2 (09:28→17:46)
[2020-12-14] MEDS: CHOLECALCIFEROL (VIT D3) 1,000 UNIT (25 MCG) TABLET PO SCH (09:28)
[2020-12-14] MEDS: CARVEDILOL 6.25 MG TABLET (FP) PO SCH ×2 (09:28→21:59)
[2020-12-14] MEDS ORDERED: PT OWN MED DRAWER 7, Y5N ONE ×2 (09:29→21:58)
[2020-12-14] MEDS: SACUBITRIL/VALSARTAN 49 MG-51 MG TABLET PO SCH ×2 (10:05→21:59)
[2020-12-14] MEDS: RIVAROXABAN 20 MG TABLET PO SCH ×2 (18:44→19:08)
[2020-12-14] MEDS: ATORVASTATIN CA 20 MG TABLET (FP) PO SCH (21:58)
[2020-12-14] MEDS: LATANOPROST 0.005% OPHTH SOLN 2.5ML BOTTLE OU SCH (22:12)
[2020-12-15] MEDS: INSULIN SLIDING SCALE (NOVOLOG) 1 VIAL SQ SCH ×4 (06:33→21:01)
[2020-12-15] MEDS: SODIUM CHLORIDE 1,000 ML IV SCH (06:54)
[2020-12-15 07:15] LABS: BASO % 1.4 % (0-2.0); EOS % 11.7 % (0-4.5); HEMATOCRIT 33.6 % (35.4-49); HEMOGLOBIN 10.6 GM/dL (11.7-16.9); LYMPH % 17.3 % (8-40); MCH 27.8 pg (25.7-33.7); MCHC 31.5 g/dl (32.0-35.9); MEAN CELL VOLUME 88.1 fl (80-96); MEAN PLT VOLUME 7.6 fl (7.5-11.1); MONO % 18.6 % (3.8-10.2); PLATELET COUNT 248 10^3/uL (134-434); RBC 3.81 M/mm3 (4.00-5.60); RDW 17.3 % (11.9-15.9); WHITE BLOOD COUNT 4.6 K/mm3 (4.0-10.0)
[2020-12-15 07:59] LABS: ALBUMIN 2.7 g/dl (3.4-5.0)
[2020-12-15 08:00] LABS: BLOOD UREA NITROGEN 12.8 mg/dL (7-18); MAGNESIUM 1.5 mg/dL (1.8-2.4)
[2020-12-15 08:03] LABS: CREATININE 0.8 mg/dL (0.55-1.3)
[2020-12-15 08:04] LABS: BILIRUBIN,TOTAL 1.2 mg/dL (0.2-1)
[2020-12-15] MEDS: AMINO ACIDS/PROTEIN HYDROLYS 30 ML LIQUID.PKT PO SCH ×2 (08:45→17:33)
[2020-12-15] MEDS: MULTIVITAMINS (DAILY MVI) TABLET (FP) PO SCH (09:52)
[2020-12-15] MEDS: SACUBITRIL/VALSARTAN 49 MG-51 MG TABLET PO SCH ×2 (09:52→21:01)
[2020-12-15] MEDS: CHOLECALCIFEROL (VIT D3) 1,000 UNIT (25 MCG) TABLET PO SCH (09:52)
[2020-12-15] MEDS: CARVEDILOL 6.25 MG TABLET (FP) PO SCH ×2 (09:52→21:01)
[2020-12-15] MEDS ORDERED: MAGNESIUM OXIDE 400 MG TABLET (FP) PO ONE (14:20)
[2020-12-15] MEDS: RIVAROXABAN 20 MG TABLET PO SCH (17:33)
[2020-12-15] MEDS: ACETAMINOPHEN 325 MG TABLET (FP) PO PRN (20:27)
[2020-12-15] MEDS ORDERED: PT OWN MED DRAWER 7, Y5N ONE (20:54)
[2020-12-15] MEDS: ATORVASTATIN CA 20 MG TABLET (FP) PO SCH (21:01)
[2020-12-15] MEDS: LATANOPROST 0.005% OPHTH SOLN 2.5ML BOTTLE OU SCH (21:02)
[2020-12-16] MEDS: INSULIN SLIDING SCALE (NOVOLOG) 1 VIAL SQ SCH ×2 (06:28→11:48)
[2020-12-16] MEDS: AMINO ACIDS/PROTEIN HYDROLYS 30 ML LIQUID.PKT PO SCH (08:36)
[2020-12-16] MEDS ORDERED: PT OWN MED DRAWER 7, Y5N ONE (09:11)
[2020-12-16] MEDS: SACUBITRIL/VALSARTAN 49 MG-51 MG TABLET PO SCH (09:37)
[2020-12-16] MEDS: CHOLECALCIFEROL (VIT D3) 1,000 UNIT (25 MCG) TABLET PO SCH (09:37)
[2020-12-16] MEDS: CARVEDILOL 6.25 MG TABLET (FP) PO SCH (09:37)
[2020-12-16] MEDS: MULTIVITAMINS (DAILY MVI) TABLET (FP) PO SCH (09:37)
[2020-12-16 14:14] VITALS: BP 115/65; PULSE 80; TEMP 98.2
== END 2020-12-16 16:14 | DRG 840 ==
LOC: JER 14:10 → JERBED 18:50 → J4S 12-09 00:30
PROVIDERS: ADMIT Internal Medicine; ATTEND Nurse Practitioner Acute Care
DX: C90.00 Multiple myeloma not having achieved remission (principal); E43 Unspecified severe protein-calorie malnutrition; C79.51 Secondary malignant neoplasm of bone; Z68.1 Body mass index [BMI] 19.9 or less, adult; R64 Cachexia; I50.32 Chronic diastolic (congestive) heart failure; I25.10 Atherosclerotic heart disease of native coronary artery without angina pectoris; R41.82 Altered mental status, unspecified; E78.5 Hyperlipidemia, unspecified; I11.0 Hypertensive heart disease with heart failure; E11.42 Type 2 diabetes mellitus with diabetic polyneuropathy; N40.0 Benign prostatic hyperplasia without lower urinary tract symptoms; M79.605 Pain in left leg; R07.89 Other chest pain; D64.9 Anemia, unspecified; W18.30XA Fall on same level, unspecified, initial encounter; Y92.091 Bathroom in other non-institutional residence as the place of occurrence of the external cause; Z79.01 Long term (current) use of anticoagulants; Z86.718 Personal history of other venous thrombosis and embolism; Z98.890 Other specified postprocedural states
CPT/HCPCS: 36415; 70450-TC; 70553-TC; 71045-TC-FY; 72125-TC; 72141-TC; 80053; 80061; 81003; 82550; 82553; 82784; 82962; 83735; 83883; 84100; 84443; 84484; 85025; 85610; 93005; 93010; 97116-GP; 97161-GP; 99285-25; A9579; C9803; U0003; U0005